=== PATIENT | female | born 1990 | race American Indian/Alaskan Native ===

== ENCOUNTER 2016-11-25 22:51 | Emergency (ER) | payer OTHER ==
[2016-11-25 22:56] VITALS: BP 132/85
--- NOTE | 2016-11-25 23:11 | EDM.PDOC ---
ED HPI Trauma - General Chief Complaint: Upper Extremity Injury/Pain Stated Complaint: R SHOULDER Source: Reports: Patient History Limitations: Reports: No limitations - History of Present Illness INITIAL COMMENTS - FREE TEXT/NARRATIVE: increase in pain to right shoulder tonight after lifting box of paper. Burning sensation after putting box don. No popping sensation. Does have sling but is not wearing. Ortho referral scheduled for december 03. Tried one tramadol at 930 without relief. Rates pain /. Recent MRI with partial rotator cuff tear. Occurred When: just prior to arrival Severity: severe Allergies/ADRs: Allergies No Known Allergies Allergy (Verified 11/25/16 22:56) Home Medications: Ambulatory Orders Insulin Aspart [NovoLOG] 12 units SUBCUT TID 06/25/14 [Confirmed 11/25/16] Insulin Detemir [Levemir Flextouch] 50 units SUBCUT BID 06/25/14 [Confirmed ] Lisinopril [Lisinopril] 20 mg PO DAILY 09/08/15 [Confirmed 11/25/16] DULoxetine [Cymbalta] 60 mg PO DAILY 11/25/16 [Confirmed 11/25/16] SitaGLIPtin [Januvia] 100 mg PO DAILY 11/25/16 [Confirmed 11/25/16] traMADol HCl [Tramadol HCl] 50 mg PO ASDIRECTED PRN 11/25/16 [Confirmed 11/25/16 ] Past Medical History - Past Health History Medical/Surgical History: Denies Medical/Surgical History HEENT History: Reports: Impaired vision Cardiovascular History: Reports: Hypertension Gastrointestinal History: Reports: Gastritis Genitourinary History: Reports: Other (see below) Other Genitourinary History: 09/07/15 states had yeast infection about 1 year ago Musculoskeletal History: Reports: Fracture Other Musculoskeletal History: Left arm Endocrine/Metabolic History: Reports: Diabetes, type I - Infectious Disease History Infectious Disease History: Reports: Chicken pox - Past Surgical History GI Surgical History: Reports: Cholecystectomy Social & Family History - Family History Family Medical History: Noncontributory Cardiac: Reports: Hypertension Other Cardiac Family History: both parents. Endocrine/Metabolic: Reports: Diabetes, type II Other Endocrine/Metabolic Family History: Both parents Oncologic: Reports: Breast Other Oncologic Family History: Both sides of family. - Tobacco Use Smoking Status *Q: Current Some Day Smoker Years of Tobacco use: 1 Packs/Tins Daily: 0.1 Second Hand Smoke Exposure: Yes - Alcohol Use Days Per Week of Alcohol Use: 0 - Recreational Drug Use Recreational Drug Use: No - Living Situation & Occupation Living situation: Reports: with family Review of Systems - Review of Systems Review Of Systems: See Below Constitutional: Reports: no symptoms Musculoskeletal: Reports: shoulder pain (right) Skin: Reports: no symptoms Neurological: Reports: no symptoms Trauma Exam - Physical Exam Exam: See Below Exam Limited By: No limitations General Appearance: Reports: alert, moderate distress (tearful), obese Head: Reports: atraumatic, normocephalic Eyes: bilateral eye: EOMI Ears: Reports: normal external exam Nose: Reports: normal inspection Throat/Mouth: Reports: Normal inspection Neck: Reports: non-tender, full range of motion Respiratory Exam: Reports: no respiratory distress, lungs clear, normal breath sounds Cardiovascular: Reports: normal peripheral pulses, regular rate, rhythm Back: Reports: muscle spasm (supraspinous tender to palp. ) Extremities: Reports: bony-point tenderness (right glenoid), pain with movement (right shoulder). Denies: normal range of motion Neurologic: Reports: no motor/sensory deficits, alert, oriented x 3 Skin: Reports: Normal color, Warm/dry Course - Vital Signs Last Recorded V/S: Last Vital Signs Temp 97.5 F 11/25/16 22:52 Pulse 114 H 11/25/16 22:52 Resp 16 11/25/16 22:52 BP 132/85 11/25/16 22:52 Pulse Ox 97 11/25/16 22:52 - Orders/Labs/Meds Meds: Medications Discontinued Medications Generic Name Dose Route Start Last Admin Trade Name Marilia PRN Reason Stop Dose Admin Acetaminophen/Hydrocodone Bitart Confirm 11/25/16 23:14 11/25/16 23:27 [place] 325-10 Mg Administered 11/25/16 23:15 Not Given Dose 1 tab .ROUTE .STK-MED ONE Cyclobenzaprine HCl Confirm 11/25/16 23:14 11/25/16 23:27 Flexeril Administered 11/25/16 23:15 Not Given Dose 10 mg .ROUTE .STK-MED ONE Departure - Departure Time of Disposition: 23:16 Disposition: Home, Self-Care 01 Condition: fair Clinical Impression: Right rotator cuff tear Qualifiers: Rotator cuff tear extent: unspecified tear extent Qualified Code(s): M75.101 - Unspecified rotator cuff tear or rupture of right shoulder, not specified as traumatic Referrals: PCP,Nolanobjean paul [Primary Care Provider] - Forms: ED Department Discharge Additional Instructions: ice to shoulder hydrocodone 10/325 one at bedtime #1 Resume tramadol in am, may take one regular strength tylenol at same time as tramadol. Flexeril 10mg one at bedtime #1 Clinic follow up this week if pain not improving Arm sling 2 days No heavy lifting
[2016-11-25] MEDS ORDERED: Cyclobenzaprine 10 MG Tab ONE (23:14)
[2016-11-25] MEDS ORDERED: Acetaminophen/HYDROcodone 325-10 MG Tab PO ONE (23:14)
[2016-11-25] MEDS ORDERED: Acetaminophen/HYDROcodone 325-10 MG Tab ONE (23:14)
[2016-11-25] MEDS ORDERED: Cyclobenzaprine 10 MG Tab PO ONE (23:14)
== END 2016-11-25 23:23 | disposition home or self-care (01) ==
LOC: DL.ED 22:51
DX: M75.101 Unspecified rotator cuff tear or rupture of right shoulder, not specified as traumatic (principal); I10 Essential (primary) hypertension; E10.9 Type 1 diabetes mellitus without complications; Z90.49 Acquired absence of other specified parts of digestive tract
CPT/HCPCS: 99283; A9270-GY

== ENCOUNTER 2016-12-06 09:12 | Emergency (ER) | payer OTHER ==
--- NOTE | 2016-12-06 09:25 | EDM.PDOC ---
ED HPI ENT - General Chief Complaint: ENT Problem Stated Complaint: sick Time Seen by Provider: 12/06/16 09:24 Source of Information: Reports: Patient, Old records, RN, RN notes reviewed History Limitations: Reports: No limitations - History of Present Illness INITIAL COMMENTS - FREE TEXT/NARRATIVE: C/O chronic dental decay with a Rt upper molar that became painful this past week. Pt was unable to be seen by the dentist, but has an appt. for next Thursday. Denies fever/chills, or drainage from the tooth or gum. Denies swelling of the face. Timing/Duration: Reports: Constant, Getting worse Location: Reports: mouth Quality: Reports: Ache, Pressure, Throbbing Improves with: Reports: None Worsens with: Reports: Eating Associated Symptoms: Reports: no other symptoms Treatments DIRECTOR OF QUALITY CONTROL: Reports: Acetaminophen - Related Data Allergies/ADRs: Allergies Allergy/AdvReac Type Severity Reaction Status Date / Time No Known Allergies Allergy Verified 11/25/16 22:56 Home Meds: Home Meds Insulin Aspart [NovoLOG] 21 units SUBCUT TID 06/25/14 [History] Insulin Detemir [Levemir Flextouch] 50 units SUBCUT BID 06/25/14 [History] Lisinopril [Lisinopril] 20 mg PO DAILY 09/08/15 [History] DULoxetine [Cymbalta] 60 mg PO DAILY 11/25/16 [History] SitaGLIPtin [Januvia] 100 mg PO DAILY 11/25/16 [History] Past Medical History - Past Health History Medical/Surgical History: Denies Medical/Surgical History HEENT History: Reports: Impaired vision Cardiovascular History: Reports: Hypertension Gastrointestinal History: Reports: Gastritis Genitourinary History: Reports: Other (see below) Other Genitourinary History: 09/07/15 states had yeast infection about 1 year ago Musculoskeletal History: Reports: Fracture Other Musculoskeletal History: Left arm Endocrine/Metabolic History: Reports: Diabetes, type I, Obesity/BMI 30+ - Infectious Disease History Infectious Disease History: Reports: Chicken pox - Past Surgical History GI Surgical History: Reports: Cholecystectomy Social & Family History - Family History Family Medical History: Noncontributory Cardiac: Reports: Hypertension Other Cardiac Family History: both parents. Endocrine/Metabolic: Reports: Diabetes, type II Other Endocrine/Metabolic Family History: Both parents Oncologic: Reports: Breast Other Oncologic Family History: Both sides of family. - Tobacco Use Smoking Status *Q: Current Some Day Smoker Years of Tobacco use: 1 Packs/Tins Daily: 0.1 Second Hand Smoke Exposure: Yes - Alcohol Use Days Per Week of Alcohol Use: 0 - Recreational Drug Use Recreational Drug Use: No - Living Situation & Occupation Living situation: Reports: with family ED ROS ENT - Review of Systems Review Of Systems: ROS reveals no pertinent complaints other than HPI. ED EXAM, ENT - Physical Exam Exam: See Below Exam Limited By: No limitations General Appearance: alert, WD/WN, no apparent distress Eye Exam: bilateral eye: normal inspection Ears: normal external exam, normal canal, hearing grossly normal, normal TMs Nose: normal inspection, normal mucousa, no blood Mouth/Throat: Normal lips, Normal oropharynx, Dental abcess (Rt maxillary molar , with significant chronic dental decay and several missing teeth.) Head: atraumatic, normocephalic Neck: normal inspection, supple, non-tender, full range of motion Respiratory/Chest: no respiratory distress Cardiovascular: regular rate, rhythm Neurological: alert, oriented, CN II-XII intact, normal cognition, normal gait, no motor/sensory deficits Psychiatric: normal affect, normal mood Skin: Warm, Dry, Intact, Normal color, No rash Course - Vital Signs Last Recorded V/S: Last Vital Signs Temp 35.7 C 12/06/16 09:15 Pulse 84 12/06/16 09:15 Resp 18 12/06/16 09:15 BP 120/77 12/06/16 09:15 Pulse Ox 99 12/06/16 09:15 Departure - Departure Time of Disposition: 09:31 Disposition: Home, Self-Care 01 Condition: good Clinical Impression: Dental abscess, Dental caries Instructions: Dental Abscess, Dental Caries Forms: ED Department Discharge Additional Instructions: Rx: Clindamycin 300mg Rx: Viscous Lidocaine 2% Rx: Naprosyn 500mg Follow up with dentist as planned.
== END 2016-12-06 09:43 | disposition home or self-care (01) ==
LOC: DL.ED 09:12
CPT/HCPCS: 99282

== ENCOUNTER 2017-05-20 21:35 | Emergency (ER) | payer OTHER | END 2017-05-20 22:40 | disposition left against medical advice (07) | LOC: DL.ED 21:35 | DX: Z53.21 Procedure and treatment not carried out due to patient leaving prior to being seen by health care provider (principal) ==

== ENCOUNTER 2017-08-01 15:14 | Emergency (ER) | payer OTHER ==
[2017-08-01 15:23] VITALS: BP 112/64
[2017-08-01] MEDS ORDERED: Sodium Chloride 0.9% 1,000 ML IV ONE (15:33)
[2017-08-01] MEDS ORDERED: Sodium Chloride 0.9% 10 ML Syringe FLUSH PRN (15:33)
[2017-08-01] MEDS ORDERED: Ketorolac 30 MG/ML SDV IVPUSH ONE (15:34)
--- NOTE | 2017-08-04 09:09 | EDM.PDOC ---
Scribed by Cristina Griggs 08/01/17 1640 for Jeanne Macias NP ED HPI GENERAL MEDICAL PROBLEM - General Chief Complaint: Headache Stated Complaint: MIGRAIN Time Seen by Provider: 08/01/17 15:29 Source of Information: Reports: Patient, RN Notes Reviewed History Limitations: Reports: No Limitations - History of Present Illness INITIAL COMMENTS - FREE TEXT/NARRATIVE: Pt presents to the ER with c/o headache. She states she has been doctoring with Sade Barrientos at [facility]. She has been prescribed medications for migraines, but they do not help. She states she has been taking Tylenol, and it has not been helping. She states she has an appointment set up for an MRI on 08/07. She states being noise and light sensitive. She denies N/V, fever or chills. Onset: Gradual Duration: Week(s): (2) Posterior Head Pain Score (Numeric/FACES): 8 - Related Data Allergies Allergy/AdvReac Type Severity Reaction Status Date / Time No Known Allergies Allergy Verified 01/20/17 16:58 Home Meds: Home Meds Insulin Aspart [NovoLOG] 15 - 30 units SUBCUT TID PRN 06/25/14 [History] Insulin Detemir [Levemir Flextouch] 50 units SUBCUT BID 06/25/14 [History] Lisinopril [Lisinopril] 20 mg PO DAILY 09/08/15 [History] Cholecalciferol (Vitamin D3) [Vitamin D3] 1 tab PO DAILY 08/01/17 [History] buPROPion HCl [Wellbutrin Xl] 1 tab PO DAILY 08/01/17 [History] Past Medical History - Past Health History Medical/Surgical History: Denies Medical/Surgical History HEENT History: Reports: Impaired Vision Cardiovascular History: Reports: High Cholesterol, Hypertension Gastrointestinal History: Reports: Gastritis Genitourinary History: Reports: Other (See Below) Other Genitourinary History: 09/07/15 states had yeast infection about 1 year ago Musculoskeletal History: Reports: Fracture Other Musculoskeletal History: Left arm Neurological History: Reports: Headaches, Chronic, Migraines Psychiatric History: Reports: Depression, Suicidal Ideation Endocrine/Metabolic History: Reports: Diabetes, Type I, Obesity/BMI 30+ - Infectious Disease History Infectious Disease History: Reports: Chicken Pox - Past Surgical History GI Surgical History: Reports: Cholecystectomy Social & Family History - Family History Family Medical History: Noncontributory Cardiac: Reports: Hypertension Other Cardiac Family History: both parents. Endocrine/Metabolic: Reports: Diabetes, type II Other Endocrine/Metabolic Family History: Both parents Oncologic: Reports: Breast Other Oncologic Family History: Both sides of family. - Tobacco Use Smoking Status *Q: Former Smoker Years of Tobacco use: 1 Packs/Tins Daily: 0.1 Used Tobacco, but Quit: Yes Month Tobacco Last Used: December 2016 Second Hand Smoke Exposure: Yes - Caffeine Use Caffeine Use: Reports: Coffee - Alcohol Use Days Per Week of Alcohol Use: 0 - Recreational Drug Use Recreational Drug Use: No - Living Situation & Occupation Living situation: Reports: with Family ED ROS GENERAL - Review of Systems Review Of Systems: ROS reveals no pertinent complaints other than HPI. - Physical Exam Exam: See Below Exam Limited By: No Limitations General Appearance: Alert, WD/WN, No Apparent Distress Eye Exam: Bilateral Eye: Normal Inspection Ears: Normal External Exam, Normal Canal, Hearing Grossly Normal, Normal TMs Nose: Normal Inspection, Normal Mucosa, No Blood Throat/Mouth: Normal Inspection, Normal Lips, Normal Teeth, Normal Gums, Normal Oropharynx, Normal Voice, No Airway Compromise Head Exam: Other (occipital headache.) Neck: Normal Inspection, Supple, Non-Tender, Full Range of Motion Respiratory/Chest: No Respiratory Distress, Lungs Clear, Normal Breath Sounds, No Accessory Muscle Use, Chest Non-Tender Cardiovascular: Normal Peripheral Pulses, Regular Rate, Rhythm, No Edema, No Gallop, No JVD, No Murmur, No Rub GI/Abdominal: Normal Bowel Sounds, Soft, Non-Tender, No Organomegaly, No Distention, No Abnormal Bruit, No Mass (Female) Exam: Deferred Rectal (Female) Exam: Deferred Neuro Exam (Abbreviated): Alert, Oriented, CN II-XII Intact, Normal Cognition, Normal Gait, Normal Reflexes, No Motor/Sensory Deficits Back Exam: Normal Inspection, Full Range of Motion, NT Extremities: Normal Inspection, Normal Range of Motion, Non-Tender, No Pedal Edema, Normal Capillary Refill Psychiatric: Normal Affect, Normal Mood Skin Exam: Warm, Dry, Intact, Normal Color, No Rash Course - Vital Signs Last Recorded V/S: Last Vital Signs Temp 96.5 F 08/01/17 15:22 Pulse 73 08/01/17 15:22 Resp 16 08/01/17 15:22 BP 112/64 08/01/17 15:22 Pulse Ox 98 08/01/17 15:22 - Orders/Labs/Meds Meds: Medications Discontinued Medications Generic Name Dose Route Start Last Admin Trade Name Marilia PRN Reason Stop Dose Admin Sodium Chloride 1,000 mls @ 999 mls/hr 08/01/17 15:33 08/01/17 15:47 Normal Saline IV 08/01/17 16:33 999 mls/hr .BOLUS ONE Administration Ketorolac Tromethamine 30 mg 08/01/17 15:34 08/01/17 15:48 Toradol IVPUSH 08/01/17 15:35 30 mg ONETIME ONE Administration Sodium Chloride 10 ml 08/01/17 15:33 08/01/17 15:45 Saline Flush FLUSH 10 ml ASDIRECTED PRN Administration Keep Vein Open Departure - Departure Time of Disposition: 17:00 Disposition: Home, Self-Care 01 Condition: Fair Clinical Impression: Migraine - Discharge Information Instructions: Recurrent Migraine Headache, [id number] Forms: ED Department Discharge Additional Instructions: Rest in a dark room. Drink plenty of water. Follow up with your scheduled MRI and your primary care facility I have read and agree with the documentation that has been completed regarding this visit. By signing this record, I attest that the documentation was completed in my physical presence and is an accurate record of the encounter.
== END 2017-08-01 16:52 | disposition home or self-care (01) ==
LOC: DL.ED 15:14
DX: G43.909 Migraine, unspecified, not intractable, without status migrainosus (principal); E10.9 Type 1 diabetes mellitus without complications; Z79.899 Other long term (current) drug therapy
CPT/HCPCS: 96361; 96374; 99283; J1885; J7030; J7050

== ENCOUNTER 2018-10-03 01:02 | Emergency (ER) | payer BC, OTHER ==
[2018-10-03] MEDS ORDERED: Clindamycin HCl 150 MG Cap PO ONE ×2 (01:03→01:19)
[2018-10-03 01:06] VITALS: BP 128/76
[2018-10-03] MEDS ORDERED: Lidocaine 2% Viscous Solution 15 ML Cup PO ONE (01:20)
--- NOTE | 2018-10-03 01:27 | EDM.PDOC ---
ED HPI GENERAL MEDICAL PROBLEM - General Chief Complaint: ENT Problem Stated Complaint: BAD TOOTHE ACHE [id number] Time Seen by Provider: 10/03/18 01:15 Source of Information: Reports: Patient History Limitations: Reports: No Limitations - History of Present Illness INITIAL COMMENTS - FREE TEXT/NARRATIVE: This 28 yo female patient reports to the ED with a 3 day history of right upper dental pain. The patient reports she attempted to get to the dentist on Thursday, but was unable to get an appointment. The patient has been taking Tylenol, ibuprofen and using orajel with little to no symptom relief. Onset Date: 09/30/18 Duration: Constant, Getting Worse Location: Reports: Face Quality: Reports: Other Severity: Moderate Improves with: Reports: None Worsens with: Reports: None Associated Symptoms: Reports: No Other Symptoms Treatments TAIL TRIMMER: Reports: Acetaminophen, NSAIDS Upper Pain Score (Numeric/FACES): 10 - Related Data Allergies Allergy/AdvReac Type Severity Reaction Status Date / Time No Known Allergies Allergy Verified 10/03/18 01:14 Home Meds: Home Meds Insulin Aspart [NovoLOG] 15 - 30 units SUBCUT TID PRN 06/25/14 [History] Insulin Detemir [Levemir Flextouch] 50 units SUBCUT BID 06/25/14 [History] Lisinopril 20 mg PO DAILY 09/08/15 [History] Cholecalciferol (Vitamin D3) [Vitamin D3] 1 tab PO DAILY 08/01/17 [History] buPROPion HCl [Wellbutrin Xl] 1 tab PO DAILY 08/01/17 [History] Saxagliptin HCl [Onglyza] 5 mg PO DAILY 10/03/18 [History] glipiZIDE [Glucotrol] 15 mg PO DAILY 10/03/18 [History] metFORMIN [Glucophage] 500 mg PO BIDMEALS 10/03/18 [History] Past Medical History - Past Health History Medical/Surgical History: Denies Medical/Surgical History HEENT History: Reports: Impaired Vision Cardiovascular History: Reports: High Cholesterol, Hypertension Respiratory History: Reports: None Gastrointestinal History: Reports: Gastritis Genitourinary History: Reports: Other (See Below) Other Genitourinary History: 09/07/15 states had yeast infection about 1 year ago AGRONOMY SPECIALIST History: Reports: None Musculoskeletal History: Reports: Fracture Other Musculoskeletal History: Left arm Neurological History: Reports: Headaches, Chronic, Migraines Psychiatric History: Reports: Depression, Suicidal Ideation Endocrine/Metabolic History: Reports: Diabetes, Type I, Obesity/BMI 30+ Hematologic History: Reports: None Immunologic History: Reports: None Oncologic (Cancer) History: Reports: None Dermatologic History: Reports: None - Infectious Disease History Infectious Disease History: Reports: Chicken Pox - Past Surgical History Head Surgeries/Procedures: Reports: None GI Surgical History: Reports: Cholecystectomy Social & Family History - Family History Family Medical History: Noncontributory Cardiac: Reports: Hypertension Other Cardiac Family History: both parents. Endocrine/Metabolic: Reports: Diabetes, type II Other Endocrine/Metabolic Family History: Both parents Oncologic: Reports: Breast Other Oncologic Family History: Both sides of family. - Tobacco Use Smoking Status *Q: Never Smoker - Caffeine Use Caffeine Use: Reports: Coffee, Tea - Recreational Drug Use Recreational Drug Use: No - Living Situation & Occupation Living situation: Reports: with Family ED ROS ENT - Review of Systems Review Of Systems: ROS reveals no pertinent complaints other than HPI. ED EXAM, ENT - Physical Exam Exam: See Below Exam Limited By: No Limitations General Appearance: Alert, WD/WN, Mild Distress Eye Exam: Bilateral Eye: EOMI, Normal Inspection, PERRL Ears: Normal External Exam, Normal Canal, Hearing Grossly Normal, Normal TMs Nose: Normal Inspection, Normal Mucousa, No Blood Mouth/Throat: Normal Inspection, Normal Lips, Normal Oropharynx, Dental Abcess ( left upper ), Dental Pain, Dental Tenderness Head: Atraumatic, Normocephalic Neck: Normal Inspection, Supple, Non-Tender, Full Range of Motion Respiratory/Chest: No Respiratory Distress, Lungs Clear, Normal Breath Sounds, No Accessory Muscle Use, Chest Non-Tender Cardiovascular: Normal Peripheral Pulses, Regular Rate, Rhythm, No Edema, No Gallop, No JVD, No Murmur, No Rub GI/Abdominal: Normal Bowel Sounds, Soft, Non-Tender, No Organomegaly, No Distention, No Abnormal Bruit, No Mass (Female) Exam: Deferred Rectal (Female) Exam: Deferred Back: Normal Inspection, Full Range of Motion Extremities: Normal Inspection, Normal Range of Motion, Non-Tender, No Pedal Edema, Normal Capillary Refill Neurological: Alert, Oriented, CN II-XII Intact, Normal Cognition, Normal Gait, Normal Reflexes, No Motor/Sensory Deficits Psychiatric: Normal Affect, Normal Mood Skin: Warm, Dry, Intact, Normal Color, No Rash Lymphatic: No Adenopathy Course - Vital Signs Last Recorded V/S: Last Vital Signs Temp 35.9 C 10/03/18 01:05 Pulse 76 10/03/18 01:05 Resp 18 10/03/18 01:05 BP 128/76 10/03/18 01:05 Pulse Ox 97 10/03/18 01:05 - Orders/Labs/Meds Meds: Medications Discontinued Medications Generic Name Dose Route Start Last Admin Trade Name Marilia PRN Reason Stop Dose Admin Clindamycin HCl 300 mg 10/03/18 01:19 Cleocin PO 10/03/18 01:20 ONETIME ONE Lidocaine HCl 15 ml 10/03/18 01:20 Xylocaine 2% Viscous PO 10/03/18 01:21 ONETIME ONE Departure - Departure Time of Disposition: 01:23 Disposition: Home, Self-Care 01 Condition: Fair Clinical Impression: Abscess, dental, Dental decay - Discharge Information *PRESCRIPTION DRUG MONITORING PROGRAM REVIEWED*: Yes *COPY OF PRESCRIPTION DRUG MONITORING REPORT IN PATIENT RIGO: Yes Instructions: Dental Abscess, [id number] Forms: ED Department Discharge Care Plan Goals: The patient was advised of the examination during the visit. The patient was given a dose of Clindamycin (300 mg) while in the ED. The patient was discharged with Clindamycin (150 mg) #2 to take in the morning. The patient was discharged with a script for Clindamycin (300 mg) #40 to take 1 by mouth 4 times per day for 10 days and Viscous Lidocaine 2% #100 mL to use 5-10 mL applied to a cottonball to the area every 6 hours. The patient should make an appointment with her dentist for continued evaluation and management. If the patient has any additional symptoms or concerns, the patient should visit her primary care facility or return to the emergency department.
[2018-10-03] MEDS ORDERED: Clindamycin HCl 150 MG Cap ONE (01:29)
== END 2018-10-03 01:37 | disposition home or self-care (01) ==
LOC: DL.ED 01:02
DX: K04.7 Periapical abscess without sinus (principal); K02.9 Dental caries, unspecified; E10.9 Type 1 diabetes mellitus without complications; E66.9 Obesity, unspecified; I10 Essential (primary) hypertension; Z79.4 Long term (current) use of insulin; Z79.899 Other long term (current) drug therapy
CPT/HCPCS: 99282; A9270

== ENCOUNTER 2019-10-09 19:11 | Emergency (ER) | payer BC, OTHER ==
[2019-10-09 19:24] VITALS: BP 122/74; PULSE 79
[2019-10-09] MEDS ORDERED: Albuterol/Ipratropium 3.0-0.5 MG/3 ML Neb Soln NEB ONE (19:36)
--- NOTE | 2019-10-09 19:38 | EDM.PDOC ---
ED HPI GENERAL MEDICAL PROBLEM - General Chief Complaint: Respiratory Problem Stated Complaint: THROAT, CHEST, FEVER Time Seen by Provider: 10/09/19 19:37 Source of Information: Reports: Patient History Limitations: Reports: No Limitations - History of Present Illness INITIAL COMMENTS - FREE TEXT/NARRATIVE: 1 week h/o cough fever sore throat, not any better. Generalized Pain Score (Numeric/FACES): 5 - Related Data Allergies Allergy/AdvReac Type Severity Reaction Status Date / Time No Known Allergies Allergy Verified 10/09/19 19:26 Home Meds: Home Meds Insulin Aspart [NovoLOG] 25 units SUBCUT TID PRN 06/25/14 [History] Insulin Detemir [Levemir Flextouch] 65 units SUBCUT BID 06/25/14 [History] Lisinopril 20 mg PO DAILY 09/08/15 [History] Cholecalciferol (Vitamin D3) [Vitamin D3] 1 tab PO DAILY 08/01/17 [History] buPROPion HCl [Wellbutrin Xl] 450 tab PO DAILY 08/01/17 [History] Saxagliptin HCl [Onglyza] 5 mg PO DAILY 10/03/18 [History] glipiZIDE [Glucotrol] 15 mg PO DAILY 10/03/18 [History] metFORMIN [Glucophage] 100 mg PO BIDMEALS 10/03/18 [History] SitaGLIPtin [Januvia] 100 mg PO DAILY 10/09/19 [History] Past Medical History - Past Health History Medical/Surgical History: Denies Medical/Surgical History HEENT History: Reports: Impaired Vision Cardiovascular History: Reports: High Cholesterol, Hypertension Respiratory History: Reports: None Gastrointestinal History: Reports: Gastritis Genitourinary History: Reports: Other (See Below) Other Genitourinary History: 09/07/15 states had yeast infection about 1 year ago 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 Musculoskeletal History: Reports: Fracture Other Musculoskeletal History: Left arm Neurological History: Reports: Headaches, Chronic, Migraines Psychiatric History: Reports: Depression, Suicidal Ideation Endocrine/Metabolic History: Reports: Diabetes, Type I, Obesity/BMI 30+ Hematologic History: Reports: None Immunologic History: Reports: None Oncologic (Cancer) History: Reports: None Dermatologic History: Reports: None - Infectious Disease History Infectious Disease History: Reports: Chicken Pox - Past Surgical History Head Surgeries/Procedures: Reports: None GI Surgical History: Reports: Cholecystectomy Social & Family History - Family History Family Medical History: Noncontributory Cardiac: Reports: Hypertension Other Cardiac Family History: both parents. Endocrine/Metabolic: Reports: Diabetes, type II Other Endocrine/Metabolic Family History: Both parents Oncologic: Reports: Breast Other Oncologic Family History: Both sides of family. - Tobacco Use Smoking Status *Q: Light Tobacco Smoker Years of Tobacco use: 1 Packs/Tins Daily: 0.2 - Caffeine Use Caffeine Use: Reports: None - Recreational Drug Use Recreational Drug Use: No Drug Use in Last 12 Months: No - Living Situation & Occupation Living situation: Reports: with Family ED ROS GENERAL - Review of Systems Review Of Systems: Comprehensive ROS is negative, except as noted in HPI. ED EXAM, GENERAL - Physical Exam Exam: See Below Exam Limited By: No Limitations General Appearance: Alert, WD/WN, Mild Distress, Other (discomfort) Ears: Hearing Grossly Normal Ear Exam: Bilateral Ear: TM Dull Throat/Mouth: Normal Voice, No Airway Compromise, Inflammation Head: Atraumatic Neck: Non-Tender, Full Range of Motion Respiratory/Chest: No Accessory Muscle Use, Rhonchi. No: Decreased Breath Sounds Cardiovascular: Regular Rate, Rhythm GI/Abdominal: Soft, Non-Tender Neurological: Alert, Oriented, Normal Cognition, Normal Gait, No Motor/Sensory Deficits Psychiatric: Flat Affect Skin Exam: Warm, Dry, Normal Color Lymphatic: No Adenopathy Course - Vital Signs Last Recorded V/S: Last Vital Signs Temp 35.9 C 10/09/19 19:20 Pulse 79 10/09/19 19:20 Resp 20 10/09/19 19:20 BP 122/74 10/09/19 19:20 Pulse Ox 97 10/09/19 19:20 - Orders/Labs/Meds Orders: Active Orders 24 hr Category Date Time Status RT Aerosol Therapy [RC] ASDIRECTED Care 10/09/19 19:36 Active Chest 2V [CR] Urgent Exams 10/09/19 20:02 Taken CULTURE STREP A CONFIRMATION [] Stat Lab 10/09/19 19:30 Results STREP SCRN A RAPID W CULT CONF [] Stat Lab 10/09/19 19:30 Results Labs: Laboratory Tests 10/09/19 Range/Units 19:40 Urine HCG, Qual Negative Meds: Medications Discontinued Medications Generic Name Dose Route Start Last Admin Trade Name Freq PRN Reason Stop Dose Admin Albuterol/Ipratropium 3 ml 10/09/19 19:36 10/09/19 19:45 Duoneb 3.0-0.5 Mg/3 Ml NEB 10/09/19 19:37 3 ml ONETIME ONE Administration Azithromycin 500 mg 10/09/19 20:31 Zithromax PO 10/09/19 20:32 ONETIME ONE Prednisone 20 mg 10/09/19 20:31 Prednisone PO 10/09/19 20:32 ONETIME ONE - Re-Assessments/Exams Free Text/Narrative Re-Assessment/Exam: 10/09/19 20:34 results discussed with pt who is feeling better s/p neb Departure - Departure Time of Disposition: 20:35 Disposition: Home, Self-Care 01 Condition: Good Clinical Impression: Bronchospasm with bronchitis, acute - Discharge Information Instructions: Acute Bronchitis, Adult, [id number] Forms: ED Department Discharge Additional Instructions: 1) rest as much as possible 2) don't sleep flat at night 3) drink lots of liquids 4) follow up at clinic [facility] Sepsis Event Note - Evaluation Sepsis Screening Result: No Definite Risk - Focused Exam Vital Signs: Vital Signs Temp Pulse Resp BP Pulse Ox 10/09/19 19:20 35.9 C 79 20 122/74 97 Date Exam was Performed: 10/09/19 Time Exam was Performed: 20:34 - My Orders Last 24 Hours: My Active Orders 10/09/19 19:30 CULTURE STREP A CONFIRMATION [RM] Stat STREP SCRN A RAPID W CULT CONF [RM] Stat 10/09/19 19:36 RT Aerosol Therapy [RC] ASDIRECTED 10/09/19 20:02 Chest 2V [CR] Urgent - Assessment/Plan Last 24 Hours: My Active Orders 10/09/19 19:30 CULTURE STREP A CONFIRMATION [RM] Stat STREP SCRN A RAPID W CULT CONF [RM] Stat 10/09/19 19:36 RT Aerosol Therapy [RC] ASDIRECTED 10/09/19 20:02 Chest 2V [CR] Urgent
[2019-10-09] MEDS ORDERED: predniSONE 20 MG Tab PO ONE (20:31)
[2019-10-09] MEDS ORDERED: Azithromycin 250 MG Tab PO ONE (20:31)
== END 2019-10-09 20:40 | disposition home or self-care (01) ==
LOC: DL.ED 19:11
DX: J20.9 Acute bronchitis, unspecified (principal); I10 Essential (primary) hypertension; E78.00 Pure hypercholesterolemia, unspecified; F32.9 Major depressive disorder, single episode, unspecified; E10.9 Type 1 diabetes mellitus without complications; E66.9 Obesity, unspecified; Z68.43 Body mass index [BMI] 50.0-59.9, adult; F17.210 Nicotine dependence, cigarettes, uncomplicated; Z79.84 Long term (current) use of oral hypoglycemic drugs; Z79.899 Other long term (current) drug therapy
CPT/HCPCS: 71046; 81025; 87081; 87430; 87804; 99284; A9270; J7620-GY

== ENCOUNTER 2020-01-08 09:38 | Emergency (ER) | payer BC, OTHER ==
[2020-01-08] MEDS ORDERED: Cyclobenzaprine 10 MG Tab PO ONE (09:39)
[2020-01-08 09:47] VITALS: BP 112/62; PULSE 72
[2020-01-08] MEDS ORDERED: Ketorolac 30 MG/ML SDV IM ONE (10:36)
[2020-01-08] MEDS ORDERED: Cyclobenzaprine 10 MG Tab ONE (10:42)
--- NOTE | 2020-01-08 10:42 | EDM.PDOC ---
Scribed by Cristina Griggs 01/08/20 1006 for Gurjit Mcdermott MD ED HPI GENERAL MEDICAL PROBLEM - General Chief Complaint: Back Pain or Injury Stated Complaint: INJURED BACK Time Seen by Provider: 01/08/20 09:51 Source of Information: Reports: Patient, RN, RN Notes Reviewed History Limitations: Reports: No Limitations - History of Present Illness INITIAL COMMENTS - FREE TEXT/NARRATIVE: Patient presents to ER via POV with c/o right thoracic back and right flank pain. She woke without pain this morning. She got up and was doing some light cleaning when her back started hurting in thoracic area around her chest below the right arm. Denies neck pain or radiating pain. Denies fall, injury, heavy lifting, or twisting. Denies abdominal pain, nausea/vomiting, constipation, diarrhea, or urinary symptoms. Denies cough, chest pain, shortness of breath, sore throat, runny nose, recent travel, or any exposures to confirmed or suspected Covid-19 cases. 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 Right Chest Pain Score (Numeric/FACES): 8 - Related Data Allergies Allergy/AdvReac Type Severity Reaction Status Date / Time No Known Allergies Allergy Verified 01/08/20 09:46 Home Meds: Home Meds Insulin Aspart [NovoLOG] 25 units SUBCUT TID PRN 06/25/14 [History] Insulin Detemir [Levemir Flextouch] 65 units SUBCUT BID 06/25/14 [History] Lisinopril 20 mg PO DAILY 09/08/15 [History] Cholecalciferol (Vitamin D3) [Vitamin D3] 1 tab PO DAILY 08/01/17 [History] buPROPion HCl [Wellbutrin Xl] 450 tab PO DAILY 08/01/17 [History] Saxagliptin HCl [Onglyza] 5 mg PO DAILY 10/03/18 [History] glipiZIDE [Glucotrol] 15 mg PO DAILY 10/03/18 [History] metFORMIN [Glucophage] 100 mg PO BIDMEALS 10/03/18 [History] SitaGLIPtin [Januvia] 100 mg PO DAILY 01/12/20 [History] Past Medical History - Past Health History Medical/Surgical History: Denies Medical/Surgical History HEENT History: Reports: Impaired Vision Cardiovascular History: Reports: High Cholesterol, Hypertension Respiratory History: Reports: None Gastrointestinal History: Reports: Gastritis Genitourinary History: Reports: Other (See Below) Other Genitourinary History: 09/07/15 states had yeast infection about 1 year ago 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 Musculoskeletal History: Reports: Fracture Other Musculoskeletal History: Left arm Neurological History: Reports: Headaches, Chronic, Migraines Psychiatric History: Reports: Depression, Suicidal Ideation Endocrine/Metabolic History: Reports: Diabetes, Type II, Obesity/BMI 30+ Hematologic History: Reports: None Immunologic History: Reports: None Oncologic (Cancer) History: Reports: None Dermatologic History: Reports: None - Infectious Disease History Infectious Disease History: Reports: Chicken Pox - Past Surgical History Head Surgeries/Procedures: Reports: None GI Surgical History: Reports: Cholecystectomy Social & Family History - Family History Family Medical History: Noncontributory Cardiac: Reports: Hypertension Other Cardiac Family History: both parents. Endocrine/Metabolic: Reports: Diabetes, type II Other Endocrine/Metabolic Family History: Both parents Oncologic: Reports: Breast Other Oncologic Family History: Both sides of family. - Tobacco Use Smoking Status *Q: Current Some Day Smoker Years of Tobacco use: 1 Packs/Tins Daily: 0.1 - Caffeine Use Caffeine Use: Reports: None - Recreational Drug Use Recreational Drug Use: No - Living Situation & Occupation Living situation: Reports: with Family ED ROS GENERAL - Review of Systems Review Of Systems: Comprehensive ROS is negative, except as noted in HPI. ED EXAM,LOWER BACK PAIN/INJURY - Physical Exam Exam: See Below Exam Limited By: No Limitations General Appearance: Alert, No Apparent Distress, Obese Eye Exam: Bilateral Eye: Normal Inspection Nose: Normal Inspection Throat/Mouth: Normal Inspection Head: Atraumatic, Normocephalic Neck: Normal Inspection, Supple, Non-Tender, Full Range of Motion. No: Lymphadenopathy (L), Lymphadenopathy (R) Respiratory/Chest: No Respiratory Distress, Lungs Clear, Normal Breath Sounds, No Accessory Muscle Use, Chest Non-Tender Cardiovascular: Normal Peripheral Pulses, Regular Rate, Rhythm GI/Abdominal: Normal Bowel Sounds, Soft, Non-Tender, Other (Benign obese abdomen ) (Female) Exam: Deferred Rectal (Female) Exam: Deferred Back Exam: CVA Tenderness (R), Decreased Range of Motion (due to pain), Paraspinal Tenderness (Right thoracic). No: CVA Tenderness (L), Vertebral Tenderness Extremities: Normal Inspection, Normal Range of Motion, Non-Tender, No Pedal Edema, Normal Capillary Refill Neurological: Alert, Normal Mood/Affect, Normal Dorsiflexion, CN II-XII Intact, Normal Plantar Flexion, Normal Gait, No Motor/Sensory Deficits, Oriented x 3 Psychiatric: Normal Affect, Normal Mood Skin Exam: Warm, Dry, Intact, Normal Color, No Rash Course - Vital Signs Last Recorded V/S: Last Vital Signs Temp 97 F 01/08/20 09:45 Pulse 72 01/08/20 09:45 Resp 20 01/08/20 09:45 BP 112/62 01/08/20 09:45 Pulse Ox 100 01/08/20 09:45 - Orders/Labs/Meds Orders: Active Orders 24 hr Category Date Time Status Thoracic Spine 3V [CR] Urgent Exams 01/08/20 10:18 Ordered Labs: Laboratory Tests 01/08/20 01/08/20 Range/Units 10:05 10:06 Urine Color Yellow (YELLOW) Urine Appearance Slightly cloudy (CLEAR) Urine pH 6.0 (5.0-9.0) Ur Specific [place] >= 1.030 (1.005-1.030) Urine Protein Trace H (NEGATIVE) Urine Glucose (UA) Negative (NEGATIVE) Urine Ketones Negative (NEGATIVE) Urine Occult Blood Negative (NEGATIVE) Urine Nitrite Negative (NEGATIVE) Urine Bilirubin Negative (NEGATIVE) Urine Urobilinogen 0.2 (0.2-1.0) mg/dL Ur Leukocyte Esterase Negative (NEGATIVE) U Hyaline Cast (Auto) Few Urine RBC 0-5 /HPF Urine WBC 0-5 (0-5/HPF) /HPF Ur Epithelial Cells Moderate H (NOT SEEN) /HPF Amorphous Sediment Few (NOT SEEN) /HPF Urine Bacteria Rare (0-FEW/HPF) /HPF Urine Mucus Moderate H (NOT SEEN) /LPF Urine HCG, Qual Negative Meds: Medications Discontinued Medications Generic Name Dose Route Start Last Admin Trade Name Freq PRN Reason Stop Dose Admin Ketorolac Tromethamine 60 mg 01/08/20 10:36 Toradol IM 01/08/20 10:37 ONETIME ONE - Radiology Interpretation Free Text/Narrative:: XR Thoracic Spine: no acute fractures or compressions, lower thoracic spine with DDD and arthritic spurring, see Rad. report. Departure - Departure Time of Disposition: 10:40 Disposition: Home, Self-Care 01 Condition: Good Clinical Impression: Spasm of thoracic back muscle Acute thoracic back pain Qualifiers: Back pain laterality: right Qualified Code(s): M54.6 - Pain in thoracic spine - Discharge Information *PRESCRIPTION DRUG MONITORING PROGRAM REVIEWED*: Not Applicable *COPY OF PRESCRIPTION DRUG MONITORING REPORT IN PATIENT RIGO: Not Applicable Instructions: Acute Back Pain, Adult, Musculoskeletal Pain Forms: ED Department Discharge Additional Instructions: Rx: Cyclobenzaprine 10mg *Do not drive while under the influence of this medication. Rx: Naprosyn 500mg *Take with meals. Use heating pad or moist hot packs to area of pain as needed. Follow up in clinic if not improving in 3 to 4 days. Sepsis Event Note - Evaluation Sepsis Screening Result: No Definite Risk - Focused Exam Vital Signs: Vital Signs Temp Pulse Resp BP Pulse Ox 01/08/20 09:45 97 F 72 20 112/62 100 Date Exam was Performed: 01/08/20 Time Exam was Performed: 10:40 - My Orders Last 24 Hours: My Active Orders 01/08/20 10:18 Thoracic Spine 3V [CR] Urgent - Assessment/Plan Last 24 Hours: My Active Orders 01/08/20 10:18 Thoracic Spine 3V [CR] Urgent I have read and agree with the documentation that has been completed regarding this visit. By signing this record, I attest that the documentation was completed in my physical presence and is an accurate record of the encounter.
== END 2020-01-08 11:12 | disposition home or self-care (01) ==
LOC: DL.ED 09:38
DX: M54.6 Pain in thoracic spine (principal); M62.830 Muscle spasm of back; I10 Essential (primary) hypertension; E11.9 Type 2 diabetes mellitus without complications; E78.00 Pure hypercholesterolemia, unspecified; F32.9 Major depressive disorder, single episode, unspecified; E66.9 Obesity, unspecified; Z68.43 Body mass index [BMI] 50.0-59.9, adult; F17.210 Nicotine dependence, cigarettes, uncomplicated; Z79.4 Long term (current) use of insulin; Z79.899 Other long term (current) drug therapy
CPT/HCPCS: 72072; 81001; 81025; 96372; 99284-25; A9270-GY; J1885

== ENCOUNTER 2020-03-26 17:31 | Emergency (ER) | payer BC, OTHER ==
[2020-03-26 17:50] VITALS: BP 115/60; PULSE 84
--- NOTE | 2020-03-26 17:57 | EDM.PDOC ---
ED HPI GENERAL MEDICAL PROBLEM - General Chief Complaint: Respiratory Problem Stated Complaint: SOB/CONGESTION Time Seen by Provider: 03/26/20 17:56 Source of Information: Reports: Patient, Old Records, RN, RN Notes Reviewed History Limitations: Reports: No Limitations - History of Present Illness INITIAL COMMENTS - FREE TEXT/NARRATIVE: Yuliya comes into ED with complaints of sinus pressure and congestion starting 3 days ago, no other symptoms. Did have a negative Covid test done 2 weeks ago. Denies fever, chills, chest pain, or cough. Onset: Gradual Duration: Day(s): (3) Location: Reports: Generalized (sinus) - Related Data Allergies Allergy/AdvReac Type Severity Reaction Status Date / Time No Known Allergies Allergy Verified 03/26/20 17:42 Home Meds: Home Meds Insulin Aspart [NovoLOG] 25 units SUBCUT TID PRN 06/25/14 [History] Insulin Detemir [Levemir Flextouch] 65 units SUBCUT BID 06/25/14 [History] Lisinopril 20 mg PO DAILY 09/08/15 [History] Cholecalciferol (Vitamin D3) [Vitamin D3] 1 tab PO DAILY 08/01/17 [History] buPROPion HCL [Wellbutrin Xl] 450 tab PO DAILY 08/01/17 [History] Saxagliptin HCl [Onglyza] 5 mg PO DAILY 10/03/18 [History] glipiZIDE [Glucotrol] 15 mg PO DAILY 10/03/18 [History] metFORMIN [Glucophage] 100 mg PO BIDMEALS 10/03/18 [History] SitaGLIPtin [Januvia] 100 mg PO DAILY 10/09/19 [History] Past Medical History - Past Health History Medical/Surgical History: Denies Medical/Surgical History HEENT History: Reports: Impaired Vision Cardiovascular History: Reports: High Cholesterol, Hypertension Respiratory History: Reports: None Gastrointestinal History: Reports: Gastritis Genitourinary History: Reports: Other (See Below) Other Genitourinary History: 09/07/15 states had yeast infection about 1 year ago 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 Musculoskeletal History: Reports: Fracture Other Musculoskeletal History: Left arm Neurological History: Reports: Headaches, Chronic, Migraines Psychiatric History: Reports: Depression, Suicidal Ideation Endocrine/Metabolic History: Reports: Diabetes, Type II, Obesity/BMI 30+ Hematologic History: Reports: None Immunologic History: Reports: None Oncologic (Cancer) History: Reports: None Dermatologic History: Reports: None - Infectious Disease History Infectious Disease History: Reports: Chicken Pox - Past Surgical History Head Surgeries/Procedures: Reports: None GI Surgical History: Reports: Cholecystectomy Social & Family History - Family History Family Medical History: Noncontributory Cardiac: Reports: Hypertension Other Cardiac Family History: both parents. Endocrine/Metabolic: Reports: Diabetes, type II Other Endocrine/Metabolic Family History: Both parents Oncologic: Reports: Breast Other Oncologic Family History: Both sides of family. - Tobacco Use Smoking Status *Q: Never Smoker - Caffeine Use Caffeine Use: Reports: None - Recreational Drug Use Recreational Drug Use: No - Living Situation & Occupation Living situation: Reports: with Family ED ROS GENERAL - Review of Systems Review Of Systems: Comprehensive ROS is negative, except as noted in HPI. ED EXAM, GENERAL - Physical Exam Exam: See Below Exam Limited By: No Limitations General Appearance: Alert, No Apparent Distress, Obese Eye Exam: Bilateral Eye: Normal Inspection Ears: Normal External Exam, Normal Canal, Hearing Grossly Normal, Normal TMs Nose: No Blood, Nasal Drainage, Other (Inferior turbinate injection and inflamation with purulent discharge) Throat/Mouth: Normal Inspection, Normal Lips, Normal Teeth, Normal Gums, Normal Oropharynx, Normal Voice, No Airway Compromise Head: Atraumatic, Normocephalic Neck: Normal Inspection, Supple, Non-Tender, Full Range of Motion. No: Lymphadenopathy (L), Lymphadenopathy (R) Respiratory/Chest: No Respiratory Distress, Lungs Clear, Normal Breath Sounds, No Accessory Muscle Use, Chest Non-Tender Cardiovascular: Regular Rate, Rhythm Neurological: Alert, Oriented, No Motor/Sensory Deficits Psychiatric: Normal Mood Skin Exam: Warm, Dry, Intact, Normal Color, No Rash Course - Vital Signs Last Recorded V/S: Last Vital Signs Temp 98.2 F 03/26/20 17:43 Pulse 84 03/26/20 17:43 Resp 18 03/26/20 17:43 BP 115/60 03/26/20 17:43 Pulse Ox 98 03/26/20 17:43 - Orders/Labs/Meds Meds: Medications Discontinued Medications Generic Name Dose Route Start Last Admin Trade Name Freq PRN Reason Stop Dose Admin Amoxicillin/Clavulanate Potassium 1 tab 03/26/20 18:06 Augmentin 875 Mg/125 Mg PO 03/26/20 18:07 ONETIME ONE Loratadine 10 mg 03/26/20 18:06 Claritin PO 03/26/20 18:07 ONETIME ONE Departure - Departure Time of Disposition: 18:07 Disposition: Home, Self-Care 01 Condition: Good Clinical Impression: Sinusitis Qualifiers: Sinusitis location: unspecified location Chronicity: acute Recurrence: non- recurrent Qualified Code(s): J01.90 - Acute sinusitis, unspecified - Discharge Information *PRESCRIPTION DRUG MONITORING PROGRAM REVIEWED*: Not Applicable *COPY OF PRESCRIPTION DRUG MONITORING REPORT IN PATIENT RIGO: Not Applicable Instructions: Sinusitis, Adult, [id number] Forms: ED Department Discharge Additional Instructions: Rx: Augmentin 875mg Rx: Loratadine 10mg Follow up in clinic if not improving in 1 week. Sepsis Event Note (ED) - Evaluation Sepsis Screening Result: No Definite Risk - Focused Exam Vital Signs: Vital Signs Temp Pulse Resp BP Pulse Ox 03/26/20 17:43 98.2 F 84 18 115/60 98
[2020-03-26] MEDS ORDERED: Loratadine 10 MG Tab PO ONE (18:06)
[2020-03-26] MEDS ORDERED: Amoxicillin/Clavulanate K 875-125 MG Tab PO ONE (18:06)
== END 2020-03-26 18:25 | disposition home or self-care (01) ==
LOC: DL.ED 17:31
DX: J01.90 Acute sinusitis, unspecified (principal); I10 Essential (primary) hypertension; E66.9 Obesity, unspecified; E11.9 Type 2 diabetes mellitus without complications; Z68.43 Body mass index [BMI] 50.0-59.9, adult; Z79.4 Long term (current) use of insulin; Z79.899 Other long term (current) drug therapy
CPT/HCPCS: 99283; A9270

== ENCOUNTER 2020-05-26 22:11 | Emergency (ER) | payer BC, OTHER ==
[2020-05-26 22:53] VITALS: BP 106/57; PULSE 65
[2020-05-26] MEDS ORDERED: Acetaminophen/HYDROcodone 325-10 MG Tab PO ONE (23:31)
--- NOTE | 2020-05-26 23:36 | EDM.PDOC ---
ED HPI GENERAL MEDICAL PROBLEM - General Chief Complaint: Back Pain or Injury Stated Complaint: BACK PAIN Time Seen by Provider: 05/26/20 23:33 Source of Information: Reports: Patient History Limitations: Reports: No Limitations - History of Present Illness INITIAL COMMENTS - FREE TEXT/NARRATIVE: strained low back while house cleaning today. Bilateral Lower Back Pain Score (Numeric/FACES): 7 - Related Data Allergies Allergy/AdvReac Type Severity Reaction Status Date / Time No Known Allergies Allergy Verified 05/26/20 22:44 Home Meds: Home Meds Insulin Aspart [NovoLOG] 25 units SUBCUT TID PRN 06/25/14 [History] Insulin Detemir [Levemir Flextouch] 65 units SUBCUT BID 06/25/14 [History] Lisinopril 20 mg PO DAILY 09/08/15 [History] Cholecalciferol (Vitamin D3) [Vitamin D3] 1 tab PO DAILY 08/01/17 [History] buPROPion HCL [Wellbutrin Xl] 450 tab PO DAILY 08/01/17 [History] Saxagliptin HCl [Onglyza] 5 mg PO DAILY 10/03/18 [History] glipiZIDE [Glucotrol] 15 mg PO DAILY 10/03/18 [History] metFORMIN [Glucophage] 100 mg PO BIDMEALS 10/03/18 [History] SitaGLIPtin [Januvia] 100 mg PO DAILY 10/09/19 [History] Past Medical History - Past Health History Medical/Surgical History: Denies Medical/Surgical History HEENT History: Reports: Impaired Vision Cardiovascular History: Reports: High Cholesterol, Hypertension Respiratory History: Reports: None Gastrointestinal History: Reports: Gastritis Genitourinary History: Reports: Other (See Below) Other Genitourinary History: 09/07/15 states had yeast infection about 1 year ago 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 Musculoskeletal History: Reports: Fracture Other Musculoskeletal History: Left arm Neurological History: Reports: Headaches, Chronic, Migraines Psychiatric History: Reports: Depression, Suicidal Ideation Endocrine/Metabolic History: Reports: Diabetes, Type II, Obesity/BMI 30+ Hematologic History: Reports: None Immunologic History: Reports: None Oncologic (Cancer) History: Reports: None Dermatologic History: Reports: None - Infectious Disease History Infectious Disease History: Reports: Chicken Pox - Past Surgical History Head Surgeries/Procedures: Reports: None GI Surgical History: Reports: Cholecystectomy Social & Family History - Family History Family Medical History: Noncontributory Cardiac: Reports: Hypertension Other Cardiac Family History: both parents. Endocrine/Metabolic: Reports: Diabetes, type II Other Endocrine/Metabolic Family History: Both parents Oncologic: Reports: Breast Other Oncologic Family History: Both sides of family. - Tobacco Use Smoking Status *Q: Never Smoker Second Hand Smoke Exposure: Yes - Caffeine Use Caffeine Use: Reports: Coffee - Recreational Drug Use Recreational Drug Use: No - Living Situation & Occupation Living situation: Reports: with Family ED ROS GENERAL - Review of Systems Review Of Systems: Comprehensive ROS is negative, except as noted in HPI. ED EXAM,LOWER BACK PAIN/INJURY - Physical Exam Exam: See Below Exam Limited By: No Limitations General Appearance: Alert, WD/WN, Mild Distress, Moderate Distress, Other (pain) Ears: Hearing Grossly Normal Throat/Mouth: Normal Voice, No Airway Compromise Head: Atraumatic Neck: Non-Tender, Full Range of Motion Respiratory/Chest: No Respiratory Distress Cardiovascular: Regular Rate, Rhythm GI/Abdominal: Soft, Non-Tender Back Exam: Muscle Spasm, Paraspinal Tenderness, Other (L2-3-4-5-S1 region without radiculitis, gait limited to pain) Neurological: Alert, No Motor/Sensory Deficits, Oriented x 3 Psychiatric: Flat Affect, Tearful Skin Exam: Warm, Dry, Normal Color Lymphatic: No Adenopathy Course - Vital Signs Last Recorded V/S: Last Vital Signs Temp 36.2 C 05/26/20 22:47 Pulse 65 05/26/20 22:47 Resp 16 05/26/20 22:47 BP 106/57 L 05/26/20 22:47 Pulse Ox 96 05/26/20 22:47 - Orders/Labs/Meds Meds: Medications Discontinued Medications Generic Name Dose Route Start Last Admin Trade Name Freq PRN Reason Stop Dose Admin Hydrocodone Bitart/Acetaminophen 1 tab 05/26/20 23:31 [place] 325-10 Mg PO 05/26/20 23:32 ONETIME ONE Departure - Departure Time of Disposition: 23:34 Disposition: Home, Self-Care 01 Condition: Good Clinical Impression: Lumbar back pain - Discharge Information Instructions: Muscle Strain, [id number] Additional Instructions: 1) no bending lifting straining next 48 hours 2) try heat to sore areas 3) follow up at clinic rx given; flexeril 10mg bid prn x 12 Sepsis Event Note (ED) - Evaluation Sepsis Screening Result: No Definite Risk - Focused Exam Vital Signs: Vital Signs Temp Pulse Resp BP Pulse Ox 05/26/20 22:47 36.2 C 65 16 106/57 L 96
== END 2020-05-26 23:42 | disposition home or self-care (01) ==
LOC: DL.ED 22:11
DX: M54.5 Low back pain (principal); E78.00 Pure hypercholesterolemia, unspecified; I10 Essential (primary) hypertension; F32.9 Major depressive disorder, single episode, unspecified; E11.9 Type 2 diabetes mellitus without complications; E66.9 Obesity, unspecified; Z79.4 Long term (current) use of insulin; Z79.899 Other long term (current) drug therapy; Z77.22 Contact with and (suspected) exposure to environmental tobacco smoke (acute) (chronic); Z68.43 Body mass index [BMI] 50.0-59.9, adult
CPT/HCPCS: 99283; A9270

== ENCOUNTER 2020-08-04 18:50 | Emergency (ER) | payer BC, OTHER | END 2020-08-04 20:58 | disposition left against medical advice (07) | LOC: DL.ED 18:50 | DX: Z53.21 Procedure and treatment not carried out due to patient leaving prior to being seen by health care provider (principal) ==

== ENCOUNTER 2023-07-26 10:34 | Emergency (ER) | payer BC, OTHER ==
[2023-07-26 10:58] VITALS: BP 129/77; PULSE 64
== END 2023-07-26 11:10 | disposition home or self-care (01) ==
LOC: DL.ED 10:34
DX: J06.9 Acute upper respiratory infection, unspecified (principal); I10 Essential (primary) hypertension; E11.9 Type 2 diabetes mellitus without complications; E66.9 Obesity, unspecified; Z68.43 Body mass index [BMI] 50.0-59.9, adult; Z79.4 Long term (current) use of insulin; Z79.84 Long term (current) use of oral hypoglycemic drugs; Z79.899 Other long term (current) drug therapy
CPT/HCPCS: 99283

== ENCOUNTER 2023-11-17 08:59 | Emergency (ER) | payer SELFPAY ==
[2023-11-17] MEDS: Sodium Chloride 0.9% 10 ML Syringe FLUSH PRN (10:15)
[2023-11-17 10:16] LABS: BASOPHILS PERCENT AUTO 0.3 % (0.0-1.0); EOSINOPHILS PERCENT AUTO 0.5 % (1.0-3.0); HEMATOCRIT 37.1 % (37.0-47.0); HEMOGLOBIN 11.8 g/dL (12.0-16.0); LYMPHOCYTES PERCENT AUTO 18.9 % (20.5-50.1); MEAN CORPUSCULAR HEMOGLOBIN 27.8 pg (27.0-34.0); MEAN CORPUSCULAR HGB CONC 31.8 g/dL (33.0-35.0); MEAN CORPUSCULAR VOLUME 87.3 fL (80-100); MONOCYTES PERCENT AUTO 10.4 % (2-8); NEUTROPHILS PERCENT AUTO 69.9 % (42.2-75.2); PLATELET COUNT,PLT 365 10^3/uL (150-450); RED BLOOD CELL COUNT 4.25 10^6/uL (4.2-5.4); WHITE BLOOD CELL COUNT,WBC 12.5 10^3/uL (5.0-10.0)
[2023-11-17 10:39] LABS: A/G RATIO 0.59; ANION GAP 15.9 mEq/L (7-13); BILIRUBIN TOTAL 0.4 mg/dL (0.2-1.0); BUN/CREATININE RATIO 11.9 (No establ ref range); CALCIUM 8.6 mg/dL (8.5-10.1); CREATININE 1.43 mg/dL (0.55-1.02); EST CRCL DRUG DOSING (CG) 53.91 mL/min; POTASSIUM,K 3.9 mmol/L (3.5-5.1); PROTEIN TOTAL,TP 8.1 g/dL (6.4-8.2)
[2023-11-17] MEDS: cefTRIAXone 1 GM Vial IVPUSH ONE (10:46)
[2023-11-17] MEDS: Ondansetron 4 MG/2 ML SDV ONE (10:56)
[2023-11-17] MEDS: Ondansetron 4 MG/2 ML SDV IVPUSH ONE (11:27)
[2023-11-17 11:43] VITALS: BP 112/59; PULSE 73
== END 2023-11-17 11:40 | disposition home or self-care (01) ==
LOC: DL.ED 08:59
DX: L03.116 Cellulitis of left lower limb (principal); E66.9 Obesity, unspecified; I10 Essential (primary) hypertension; Z79.84 Long term (current) use of oral hypoglycemic drugs; Z79.899 Other long term (current) drug therapy; Z79.4 Long term (current) use of insulin
CPT/HCPCS: 36415; 80053; 83605; 85025; 96374; 99283; J0696; J2405; J3490

== ENCOUNTER 2024-05-29 13:43 | Observation (INO) | payer OTHER ==
[2024-05-29 14:15] LABS: BASOPHILS PERCENT AUTO 0.2 % (0.0-1.0); HEMATOCRIT 34.9 % (37.0-47.0); HEMOGLOBIN 11.2 g/dL (12.0-16.0); LYMPHOCYTES PERCENT AUTO 4.8 % (20.5-50.1); MEAN CORPUSCULAR HEMOGLOBIN 26.9 pg (27.0-34.0); MEAN CORPUSCULAR HGB CONC 32.1 g/dL (33.0-35.0); MEAN CORPUSCULAR VOLUME 83.9 fL (80-100); MONOCYTES PERCENT AUTO 2.4 % (2-8); NEUTROPHILS PERCENT AUTO 92.6 % (42.2-75.2); PLATELET COUNT,PLT 355 10^3/uL (150-450); RED BLOOD CELL COUNT 4.16 10^6/uL (4.2-5.4); WHITE BLOOD CELL COUNT,WBC 20.2 10^3/uL (5.0-10.0)
[2024-05-29 14:36] LABS: ALANINE AMINOTRANSFERASE,ALT 21 U/L (14-59); ALBUMIN 3.1 g/dL (3.4-5.0); ALKALINE PHOSPHATASE 96 U/L (46-116); ANION GAP 12.8 mEq/L (7-13); ASPARTATE AMNIOTRANSFERASE,AST 16 U/L (15-37); BILIRUBIN TOTAL 0.5 mg/dL (0.2-1.0); BLOOD UREA NITROGEN,BUN 14 mg/dL (7-18); BUN/CREATININE RATIO 12.4 (No establ ref range); CALCIUM 8.8 mg/dL (8.5-10.1); CARBON DIOXIDE,CO2 23 mmol/L (21-32); CHLORIDE,CL 100 mmol/L (98-107); CREATININE 1.13 mg/dL (0.55-1.02); EST CRCL DRUG DOSING (CG) 67.57 mL/min; GLUCOSE RANDOM 243 mg/dL (70-99); POTASSIUM,K 3.8 mmol/L (3.5-5.1); PROTEIN TOTAL,TP 7.9 g/dL (6.4-8.2); SODIUM,NA 132 mmol/L (136-145)
[2024-05-29 14:38] LABS: A/G RATIO 0.65; ESTIMATED GFR 65 mL/min (>=60)
[2024-05-29 14:40] LABS: HCG QUALITATIVE,SERUM NEGATIVE (NEGATIVE)
[2024-05-29] MEDS: Acetaminophen 500 MG Tab PO ONE (14:57)
[2024-05-29] MEDS: Lactated Ringers 1,000 ML IV ONE (14:57)
[2024-05-29 15:03] LABS: APPEARANCE,URINE CLEAR (CLEAR); BILIRUBIN,URINE NEGATIVE (NEGATIVE); COLOR,URINE YELLOW (YELLOW); GLUCOSE,URINE NEGATIVE (NEGATIVE); KETONES,URINE NEGATIVE (NEGATIVE); LEUKOCYTE ESTERASE,URINE SMALL (NEGATIVE); NITRITE,URINE NEGATIVE (NEGATIVE); OCCULT BLOOD,URINE NEGATIVE (NEGATIVE); PROTEIN,URINE NEGATIVE (NEGATIVE); UROBILINOGEN,URINE 0.2 mg/dL (0.2-1.0)
[2024-05-29 15:20] LABS: BACTERIA,URINE FEW /HPF (0-FEW/HPF); EPITHELIAL CELLS,URINE MODERATE /HPF (NOT SEEN); MUCUS,URINE FEW /LPF (NOT SEEN); RBC,URINE NOT SEEN /HPF (0-5); WBC,URINE 0-5 /HPF (0-5/HPF)
[2024-05-29] MEDS: Piperacillin/Tazobactam 4.5 GM in Sodium Chloride 0.9% 100 ML IV ONE (16:13)
[2024-05-29] MEDS: Lactated Ringers 1,000 ML IV SCH (17:04)
[2024-05-29] MEDS ORDERED: Non-Formulary Medication 1 Each (Semaglutide [Ozempic] 1 MG/0.75 ML Pen.Injctr) SQ SCH (18:00)
[2024-05-29] MEDS ORDERED: Docusate Sodium 100 MG Cap PO PRN (18:08)
[2024-05-29] MEDS: ceFAZolin 2 GM Vial IVPUSH SCH (19:09)
[2024-05-29] MEDS: buPROPion 150 MG Tab.ER PO SCH (19:09)
[2024-05-29] MEDS: Enoxaparin 40 MG/0.4 ML Syringe SUBCUT SCH (19:09)
[2024-05-29] MEDS: Cholecalciferol (Vitamin D3) 25 MCG Tab PO SCH (19:09)
[2024-05-29] MEDS: metFORMIN 500 MG Tab PO SCH (19:09)
[2024-05-29] MEDS ORDERED: Acetaminophen 325 MG Tab PO PRN (20:53)
[2024-05-29] MEDS: Insulin Glarg,Human.Rec.Analog 100 Unit/ML 10 ML Vial SUBCUT SCH (21:02)
[2024-05-29] MEDS: Ferrous Sulfate 325 MG Tab PO SCH (21:02)
[2024-05-29] MEDS: Acetaminophen 325 MG Tab PO STA ×2 (21:02→22:27)
[2024-05-29] MEDS: oxyCODONE 5 MG Tab PO PRN (21:04)
[2024-05-30] MEDS: Acetaminophen 325 MG Tab PO PRN (02:30)
[2024-05-30 06:39] LABS: HEMATOCRIT 32.2 % (37.0-47.0); HEMOGLOBIN 10.1 g/dL (12.0-16.0); MEAN CORPUSCULAR HEMOGLOBIN 26.9 pg (27.0-34.0); MEAN CORPUSCULAR HGB CONC 31.4 g/dL (33.0-35.0); MEAN CORPUSCULAR VOLUME 85.6 fL (80-100); RED BLOOD CELL COUNT 3.76 10^6/uL (4.2-5.4); WHITE BLOOD CELL COUNT,WBC 10.4 10^3/uL (5.0-10.0)
[2024-05-30 06:58] LABS: A/G RATIO 0.59; ALBUMIN 2.6 g/dL (3.4-5.0); ANION GAP 10.6 mEq/L (7-13); BILIRUBIN TOTAL 0.4 mg/dL (0.2-1.0); BUN/CREATININE RATIO 9.7 (No establ ref range); CALCIUM 8.5 mg/dL (8.5-10.1); CREATININE 1.03 mg/dL (0.55-1.02); EST CRCL DRUG DOSING (CG) 74.13 mL/min; POTASSIUM,K 3.6 mmol/L (3.5-5.1)
[2024-05-30] MEDS: Propranolol 60 MG Cap.ER PO SCH (09:04)
[2024-05-30] MEDS: Insulin Lispro 100 Units/ML 3 ML Vial SUBCUT SCH (09:05)
[2024-05-30] MEDS: Lisinopril 10 MG Tab PO SCH (09:07)
[2024-05-30] MEDS: Ondansetron 4 MG/2 ML SDV IVPUSH PRN (10:57)
[2024-05-30] MEDS: Sodium Chloride 0.9% 10 ML Syringe FLUSH PRN (10:57)
[2024-05-30] MEDS: Sodium Chloride 0.9% 1,000 ML IV SCH (12:19)
[2024-05-31 08:03] VITALS: PULSE 55
[2024-05-31 08:59] VITALS: BP 100/43
== END 2024-05-31 09:18 | disposition left against medical advice (07) ==
LOC: DL.ED 13:43 → DL.MS 17:12 → DL.ED 17:15
PROVIDERS: ADMIT Internal Medicine; ATTEND Internal Medicine
DX: L03.116 Cellulitis of left lower limb (principal); I10 Essential (primary) hypertension; E11.9 Type 2 diabetes mellitus without complications; E66.9 Obesity, unspecified; F17.210 Nicotine dependence, cigarettes, uncomplicated; Z20.822 Contact with and (suspected) exposure to COVID-19; Z79.4 Long term (current) use of insulin; Z79.899 Other long term (current) drug therapy; Z68.30 Body mass index [BMI] 30.0-30.9, adult; Z79.84 Long term (current) use of oral hypoglycemic drugs
CPT/HCPCS: 36415; 80053; 81001; 82947; 83605; 84703; 85025; 85027; 87040; 87086; 87088; 87186; 87804; 96361; 96365; 96372; 96375; 96376; 99222; 99232; 99238; 99284; 99284-25; A9270-GY; G0378; J0690; J1650; J1815-GY; J2405; J2543; J3490; J7030; J7120; U0002

== ENCOUNTER 2024-06-20 16:39 | Emergency (ER) | payer OTHER ==
[2024-06-20 17:23] VITALS: BP 119/63; PULSE 65
== END 2024-06-20 19:45 | disposition left against medical advice (07) ==
LOC: DL.ED 16:39
DX: Z53.21 Procedure and treatment not carried out due to patient leaving prior to being seen by health care provider (principal)

== ENCOUNTER 2024-12-17 21:25 | Emergency (ER) | payer BC, OTHER ==
[2024-12-17] MEDS: Take Home: Doxycycline 100 MG Cap, 4 Cap Pack PO ONE (21:51)
[2024-12-17] MEDS: cefTRIAXone 1 GM, Lidocaine 1% 2.1 ML IM ONE (21:52)
[2024-12-17 22:08] VITALS: BP 114/80; PULSE 84
== END 2024-12-17 21:58 | disposition home or self-care (01) ==
LOC: DL.ED 21:25
DX: L03.116 Cellulitis of left lower limb (principal); I10 Essential (primary) hypertension; E66.9 Obesity, unspecified; Z79.4 Long term (current) use of insulin; Z79.899 Other long term (current) drug therapy; Z90.49 Acquired absence of other specified parts of digestive tract
CPT/HCPCS: 96372; 99283; 99284; A9270; J0696; J2003

== ENCOUNTER 2025-04-11 16:34 | Emergency (ER) | payer OTHER ==
[2025-04-11] MEDS: cefTRIAXone 1 GM, Lidocaine 1% 2.1 ML IM ONE (16:58)
[2025-04-11 17:17] VITALS: BP 114/77; PULSE 106
== END 2025-04-11 17:03 | disposition home or self-care (01) ==
LOC: DL.ED 16:34
DX: L03.116 Cellulitis of left lower limb (principal); I10 Essential (primary) hypertension; Z90.49 Acquired absence of other specified parts of digestive tract; Z79.4 Long term (current) use of insulin; Z79.899 Other long term (current) drug therapy
CPT/HCPCS: 96372; 99283; J0696; J2003

== ENCOUNTER 2025-04-30 17:09 | Emergency (ER) | payer OTHER ==
[2025-04-30] MEDS ORDERED: Sodium Chloride 0.9% 10 ML Syringe FLUSH PRN (17:24)
[2025-04-30 18:03] LABS: BASOPHILS PERCENT AUTO 0.5 % (0.0-1.0); EOSINOPHILS PERCENT AUTO 3.5 % (1.0-3.0); LYMPHOCYTES PERCENT AUTO 18.7 % (20.5-50.1); MONOCYTES PERCENT AUTO 5.8 % (2-8); NEUTROPHILS PERCENT AUTO 71.5 % (42.2-75.2); PLATELET COUNT,PLT 386 10^3/uL (150-450); RED BLOOD CELL COUNT 4.24 10^6/uL (4.2-5.4); WHITE BLOOD CELL COUNT,WBC 10.7 10^3/uL (5.0-10.0)
[2025-04-30 18:17] LABS: BLOOD UREA NITROGEN,BUN 12 mg/dL (7-18); CARBON DIOXIDE,CO2 28 mmol/L (21-32); CHLORIDE,CL 100 mmol/L (98-107); CREATININE 0.85 mg/dL (0.55-1.02); GLUCOSE RANDOM 170 mg/dL (70-99); POTASSIUM,K 4.0 mmol/L (3.5-5.1); SODIUM,NA 136 mmol/L (136-145)
[2025-04-30 18:18] LABS: ESTIMATED GFR 91 mL/min (>=60)
[2025-04-30 18:24] LABS: LACTIC ACID 2.0 mmol/L (0.4-2.0)
[2025-04-30 18:51] VITALS: BP 124/71; PULSE 78
== END 2025-04-30 19:00 | disposition home or self-care (01) ==
LOC: DL.ED 17:09
DX: L03.116 Cellulitis of left lower limb (principal); I10 Essential (primary) hypertension; E66.9 Obesity, unspecified; E10.9 Type 1 diabetes mellitus without complications; Z79.4 Long term (current) use of insulin; Z79.899 Other long term (current) drug therapy; Z90.49 Acquired absence of other specified parts of digestive tract
CPT/HCPCS: 36415; 80048; 83605; 83735; 85025; 86140; 87040; 93971; 99284; A9270; 99283